=== PATIENT | female | born 1985 | race Caucasian/White ===

== ENCOUNTER 2021-01-03 11:24 | Emergency (ER) | payer OTHER ==
[~2021-01-03 11:24] MED LIST: IBUPROFEN600 MG PO; NEURONTIN 400400 MG PO; SUBOXONE 8 MG-1 EACH PO; VRAYLAR PO
[2021-01-03 13:10] LABS: HEMOGLOBIN 13.3 gm/dl (12.3-15.3); RED BLOOD COUNT 4.3 M/UL (4.00-5.10); WHITE BLOOD COUNT 9.3 K/UL (4.5-11.0)
[2021-01-03 14:16] LABS: BUN/CREATININE RATIO 11 (0-10)
[2021-01-03] MEDS ORDERED: BACTROBAN OINT22 GM EXT (16:16)
[2021-01-03] MEDS ORDERED: CEPHALEXIN500 M1 PO (16:16)
[2021-01-03] MEDS ORDERED: IBUPROFEN600 MG PO (16:16)
== END 2021-01-03 17:55 | disposition home or self-care (01) ==
LOC: ER1 11:24
PROVIDERS: Physician Assistant Medical
DX: R44.3 Hallucinations, unspecified (principal); F15.10 Other stimulant abuse, uncomplicated; S90.811A Abrasion, right foot, initial encounter; J45.909 Unspecified asthma, uncomplicated; F17.210 Nicotine dependence, cigarettes, uncomplicated; Z79.899 Other long term (current) drug therapy; X58.XXXA Exposure to other specified factors, initial encounter
CPT/HCPCS: 80053; 80307; 81001; 85025; 99285; G0480